=== PATIENT | male | born 1985 | race Two or more races ===

== ENCOUNTER 2022-01-26 21:29 | Emergency (ER) | payer BC ==
[2022-01-27] MEDS ORDERED: Sodium Chloride 0.9% 1,000 ML IV ONE ×2 (00:22→01:52)
[2022-01-27] MEDS ORDERED: Ondansetron 4 MG/2 ML SDV IVPUSH ONE (00:22)
== END 2022-01-27 03:40 | disposition home or self-care (01) ==
LOC: JD.ED 21:29
DX: R11.10 Vomiting, unspecified (principal); E86.0 Dehydration; N17.9 Acute kidney failure, unspecified
CPT/HCPCS: 36415; 80053; 82550; 83735; 85025; 96361; 96374; 99284; J2405; J7030